=== PATIENT | male | born 1950 | race Caucasian/White ===

== ENCOUNTER 2022-05-24 11:14 | Emergency (ER) | payer OTHER ==
[~2022-05-24] VITALS: Ht 170.2 cm; Wt 61.2 kg
[2022-05-24] MEDS ORDERED: CRESTOR5 MG (12:04)
[2022-05-24] MEDS ORDERED: FINASTERIDE5 MG (12:04)
[2022-05-24] MEDS ORDERED: DAFLONEX-XL 11300 MG (12:05)
[2022-05-24] MEDS ORDERED: VITAL-D RX TAB1 EACH (12:05)
[2022-05-24] MEDS ORDERED: CENTRUM COMPLE1 EACH (12:06)
== END 2022-05-24 16:27 | disposition home or self-care (01) ==
LOC: ER 11:14
DX: K57.90 Diverticulosis of intestine, part unspecified, without perforation or abscess without bleeding (principal); Z85.46 Personal history of malignant neoplasm of prostate